=== PATIENT | female | born 1985 | race African-American/Black ===

== ENCOUNTER 2025-03-13 04:33 | Emergency (ER) | payer BC, MEDICAID ==
[~2025-03-13] VITALS: Ht 165.1 cm; Wt 91.0 kg
[2025-03-13 04:53] VITALS: O2SAT 98
[2025-03-13] MEDS ORDERED: LIDOCAINE HCL 1% 20ML VIAL INFIL ONE (05:45)
[2025-03-13] MEDS: KETOROLAC 30MG/ML VIAL IM ONE (06:27)
[2025-03-13 07:29] VITALS: BP 151/85; PULSE 98; RESP 18; TEMP 36.8; O2SAT 99
== END 2025-03-13 07:33 | disposition home or self-care (01) ==
LOC: ER 04:33
DX: S01.511A Laceration without foreign body of lip, initial encounter (principal); Y04.0XXA Assault by unarmed brawl or fight, initial encounter; Y93.89 Activity, other specified; Y92.89 Other specified places as the place of occurrence of the external cause; Y99.8 Other external cause status
CPT/HCPCS: 12011; 96372; 99283; J1885; J2003; Z7610